=== PATIENT | female | born 1995 | race Caucasian/White ===

== ENCOUNTER → 2017-09-08 | Outpatient (CLI) | payer BC ==
[~2017-09-08] MED LIST: IOTHALAMATE MEGLUMINE 17.20% 250 ML BTL ONE
--- NOTE | 2017-09-08 13:10 | Diagnostic Imaging Report ---
PROCEDURE:VOIDING CYSTOURETHROGAM INDICATION:Repeat episodes of pyelonephritis. COMPARISON:None. Technique:Rodas catheter was placed by the nursing service. The patient was positioned supine on the fluoroscopy table. The urinary bladder was filled with contrast in a retrograde fashion utilizing gravity. The bladder was filled until the patient described discomfort with bladder fullness. Spot images were obtained in the AP, oblique, and lateral projections. Several images were obtained with brief micturition. The patient described discomfort and inability to urinate on the fluoroscopy table. The patient was allowed to void in the restroom. Completion images were obtained immediately upon voiding. Fluoroscopy time 6.3 minutes. Total dose 219.8 mGy. Findings: No filling defect is noted within the urinary bladder. No vesiculoureteral reflux was visualized. Trace post void residual volume is noted. CONCLUSION: No acute radiographic abnormality. No evidence of vesiculoureteral reflux. Dictated by: Jean Paul Ashley M.D. on 09/08/2017 at 13:20 Electronically approved by: Jean Paul Ahsley M.D. on 09/08/2017 at 13:20
--- NOTE | 2017-09-08 19:35 | Diagnostic Imaging Report ---
Renal Scan Reason for exam: 22 F with microscopic hematuria; history of frequent UTI's including pyelonephritis, history of VUR as a child. Radiopharmaceutical: Tc-99m MAG3 9.0 mCi Report: After administration of the radiopharmaceutical, dynamic images of the kidneys were obtained through 40 minutes. LEFT KIDNEY: Perfusion is prompt. The left kidney has a normal reniform shape with smooth contours. The left kidney is slightly smaller than the right kidney. Extraction of tracer from the blood pool is normal. Clearance of tracer from the renal parenchyma is prompt. Few dilated calices in the kidney but the renal pelvis is not dilated. Some pooling of tracer is seen within the mildly dilated calices. Drainage of tracer from the pelvicaliceal system is adequate. No stasis of tracer is seen in the left ureter. RIGHT KIDNEY: Perfusion is prompt. The kidney has a normal reniform shape with smooth contours. Extraction of tracer from the blood pool is normal. Clearance of tracer from the renal parenchyma is prompt. Few dilated calices in the kidney but the renal pelvis is not dilated. Some pooling of tracer is seen within the mildly dilated calices. Drainage of tracer from the pelvicaliceal system is adequate. No stasis of tracer is seen in the right ureter. DIFFERENTIAL RENAL FUNCTION: Left kidney 46% and right kidney 54% (normal 43-57%). Impression: 1. The left kidney shows evidence of mild reflux uropathy. No wedge-shaped cortical scars. The slightly smaller size of the kidney accounts for the differential function of 46%. Mild caliectasis is present but the renal pelvis is not dilated and the pelvicalyceal system drains adequately. 2. The right kidney shows evidence of mild reflux uropathy. No wedge-shaped cortical scars. Mild caliectasis is present but the renal pelvis is not dilated and the pelvicalyceal system drains adequately. 3. The differential renal function is within the normal range. Signed by: Dr. Cecile Melendez M.D. on 09/08/2017 7:31 PM
== END ==
LOC: DX 08:42
PROVIDERS: ATTEND Urology
DX: R31.9 Hematuria, unspecified (principal)
CPT/HCPCS: 74455; 78707; A9562; Q9958